=== PATIENT | female | born 1995 | race African-American/Black ===

== ENCOUNTER 2016-03-24 05:54 | Emergency (ER) | payer MEDICAID ==
[2016-03-24] MEDS ORDERED: KETOROLAC 30 MG/ML VIAL ONE ×2 (06:31→06:45)
[2016-03-24] MEDS ORDERED: LORTAB 7.5/325 ELIX 15 ML UDC ONE (07:28)
== END 2016-03-24 07:39 | disposition home or self-care (01) ==
LOC: ER 05:54
DX: G89.18 Other acute postprocedural pain (principal)
CPT/HCPCS: 96372